=== PATIENT | male | born 1995 | race Hispanic/Latino ===

== ENCOUNTER 2017-10-31 18:01 | Emergency (ER) | payer OTHER ==
[2017-10-31] MEDS ORDERED: KETOROLAC TROMETHAMINE 60 MG/2 ML VIAL ONE (18:51)
== END 2017-10-31 20:18 | disposition home or self-care (01) ==
LOC: EDH 18:01
DX: M25.551 Pain in right hip (principal); M19.90 Unspecified osteoarthritis, unspecified site
CPT/HCPCS: 72100; 72170; 96372; 99284; J1885

== ENCOUNTER 2020-12-10 09:00 | Inpatient (IN) | payer OTHER ==
[~2020-12-10] VITALS: Ht 177.8 cm; Wt 83.2 kg
[2020-12-10 10:18] LABS: EOSINOPHILS % (AUTO) 3.4 % (0.0-8.0); LYMPHOCYTES % (AUTO) 28.2 % (21.0-51.0); MEAN CORPUSCULAR HEMOGLOBIN 29.4 pg (27.0-33.0); MEAN CORPUSCULAR HGB CONC 32.6 g/dL (32.0-36.0); MEAN CORPUSCULAR VOLUME 90.3 fL (79-99); MONOCYTES % (AUTO) 8.6 % (3.0-13.0); NEUTROPHILS % (AUTO) 58.4 % (40.0-77.0); PLATELET COUNT (AUTO) 539 K/uL (130-400); RED BLOOD CELL COUNT(AUTO) 4.76 MIL/uL (4.50-6.20); RED CELL DISTRIBUTION WIDTH 13.6 % (11.0-15.5); WHITE BLOOD COUNT (AUTO) 9.4 K/uL (4.8-10.8)
[2020-12-10 10:19] LABS: APPEARANCE,URINE Clear (CLEAR); BILIRUBIN,URINE Negative (NEGATIVE); COLOR,URINE Yellow (YELLOW); GLUCOSE, URINE (UA) Negative (NEGATIVE); KETONES,URINE Negative (NEGATIVE); LEUKOCYTE ESTERASE ,URINE Negative (NEGATIVE); NITRATE,URINE Negative (NEGATIVE); OCCULT BLOOD,URINE Negative (NEGATIVE); PH,URINE 5.5 (5.0-8.0); PROTEIN,URINE Negative (NEGATIVE); UROBILINOGEN,URINE 0.2 mg/dL (0.2-1.0)
[2020-12-10 10:28] LABS: CREATININE 0.8 mg/dL (0.5-1.5)
[2020-12-10 10:32] LABS: INR 1.05 (0.85-1.15); PROTHROMBIN TIME 11.4 SEC (9.6-11.6)
[2020-12-15 09:45] VITALS: BP 145/65
[2020-12-15] MEDS ORDERED: IBUP-2070 PO (09:57)
[2020-12-16] VITALS (22 sets, daily range): BP systolic 125–152; BP diastolic 70–98
[2020-12-16] MEDS ORDERED: CEFAZOLIN SODIUM 1 GM VIAL IVP ONE (08:00)
[2020-12-16] MEDS ORDERED: ACETAMINOPHEN 500 MG TABLET ONE (10:35)
[2020-12-16] MEDS ORDERED: METOCLOPRAMIDE 10 MG/2 ML VIAL ONE (10:35)
[2020-12-16] MEDS ORDERED: KETOROLAC 15MG/ML VIAL (15MG/ML) ONE (10:35)
[2020-12-16] MEDS ORDERED: CELECOXIB 200 MG CAP ONE (10:36)
[2020-12-16] MEDS ORDERED: LACTATED RINGERS 1000ML 1,000 ML IV ONE (10:36)
[2020-12-16] MEDS ORDERED: OXYCODONE HCL 10 MG TAB.SR.12H PO ONE (10:36)
[2020-12-16] MEDS ORDERED: TRANEXAMIC ACID 1000MG/10ML ONE (10:41)
[2020-12-16] MEDS ORDERED: CEFAZOLIN SODIUM 1 GM VIAL ONE ×2 (10:41→10:56)
[2020-12-16] MEDS ORDERED: LIDOCAINE PF 100MG/5ML (2%) SYRINGE 5ML ONE (10:51)
[2020-12-16] MEDS ORDERED: SUCCINYLCHOLINE CHLORIDE 20 MG/ML 10 ML VIAL ONE (10:51)
[2020-12-16] MEDS ORDERED: MIDAZOLAM HCL 1 MG/ML 2ML VIAL ONE (10:52)
[2020-12-16] MEDS ORDERED: PROPOFOL 10 MG/ML 20ML VIAL IV ONE ×2 (10:52→15:23)
[2020-12-16] MEDS ORDERED: ROCURONIUM 10MG/1ML SYR 10 MG/ML ML ONE ×3 (10:52→13:06)
[2020-12-16] MEDS ORDERED: FENTANYL CITRATE PF 50 MCG/1 ML 2ML VIAL ONE ×3 (10:52→15:16)
[2020-12-16] MEDS ORDERED: ROPIVACAINE 0.5% 5MG/ML 30ML IJ ONE (10:56)
[2020-12-16] MEDS ORDERED: DEXAMETHASONE SOD PHOSPHATE 10MG/ML 1ML VIAL ONE (11:48)
[2020-12-16] MEDS ORDERED: PHENYLEPHRINE HCL 10 MG/ML 1ML VIAL IV ONE (12:07)
[2020-12-16] MEDS ORDERED: GLYCOPYRROLATE 1 MG/5 ML SYRINGE ONE (12:08)
[2020-12-16] MEDS ORDERED: NEOSTIGMINE 5MG/5ML SYR IV ONE (12:08)
[2020-12-16] MEDS ORDERED: ONDANSETRON 4MG INJ ONE (12:08)
[2020-12-16] MEDS ORDERED: POTASSIUM CHLORIDE 10% ELIXIR 20 MEQ/15 ML UDCUP PO PRN (15:45)
[2020-12-16] MEDS ORDERED: KCL 20 MEQ ERTAB PO PRN (15:45)
[2020-12-16] MEDS ORDERED: OXYCODONE HCL 5 MG TAB PO PRN (15:45)
[2020-12-16] MEDS ORDERED: LIDOCAINE HCL-MPF 1% 2ML VIAL IV PRN (15:45)
[2020-12-16] MEDS ORDERED: FERROUS FUMARATE 324 MG TABLET PO PRN (15:45)
[2020-12-16] MEDS ORDERED: TEMAZEPAM 15 MG CAPSULE PO PRN (15:45)
[2020-12-16] MEDS: ACETAMINOPHEN 500 MG TABLET PO SCH (15:45)
[2020-12-16] MEDS ORDERED: CALCIUM CARB 500MG PO PRN (15:45)
[2020-12-16] MEDS ORDERED: DiphenhydrAMINE HCL 50 MG/ML VIAL IVP PRN (15:45)
[2020-12-16] MEDS ORDERED: TRAMADOL HCL 50 MG TABLET PO PRN (15:45)
[2020-12-16] MEDS ORDERED: POTASSIUM CHLORIDE 20MEQ/100ML 100 ML IV PRN (15:45)
[2020-12-16] MEDS ORDERED: ONDANSETRON 4MG INJ IVP PRN (15:45)
[2020-12-16] MEDS: OXYCODONE HCL 5 MG TAB PO PRN (17:26)
[2020-12-16] MEDS: 0.9%NACL 1000ML 1,000 ML IV SCH (17:27)
[2020-12-16] MEDS: KETOROLAC 15MG/ML VIAL (15MG/ML) IV PRN (18:49)
[2020-12-16] MEDS: CELECOXIB 200 MG CAP PO SCH (20:34)
[2020-12-16] MEDS: CEFAZOLIN SODIUM 1 GM VIAL IVP SCH (20:35)
[2020-12-16] MEDS: FAMOTIDINE 20MG TAB PO SCH (20:35)
[2020-12-16] MEDS: PREGABALIN 25 MG CAP PO SCH (20:35)
[2020-12-17] MEDS: ACETAMINOPHEN 500 MG TABLET PO SCH ×4 (00:40→23:45)
[2020-12-17] MEDS: 0.9%NACL 1000ML 1,000 ML IV SCH ×2 (01:45→11:45)
[2020-12-17 04:22] VITALS: BP 128/80
[2020-12-17] MEDS: CEFAZOLIN SODIUM 1 GM VIAL IVP SCH (04:26)
[2020-12-17] MEDS: OXYCODONE HCL 5 MG TAB PO PRN ×3 (04:40→20:16)
[2020-12-17] MEDS: KETOROLAC 15MG/ML VIAL (15MG/ML) IV PRN ×3 (04:51→17:24)
[2020-12-17 05:22] LABS: HEMATOCRIT 32.8 % (42-54); MEAN CORPUSCULAR HEMOGLOBIN 29.9 pg (27.0-33.0); MEAN CORPUSCULAR HGB CONC 33.2 g/dL (32.0-36.0); MEAN CORPUSCULAR VOLUME 89.9 fL (79-99); RED BLOOD CELL COUNT(AUTO) 3.65 MIL/uL (4.50-6.20); RED CELL DISTRIBUTION WIDTH 13.7 % (11.0-15.5); WHITE BLOOD COUNT (AUTO) 11.7 K/uL (4.8-10.8)
[2020-12-17 05:35] LABS: CREATININE 0.7 mg/dL (0.5-1.5)
[2020-12-17 07:51] VITALS: BP 109/68
[2020-12-17] MEDS: TAMSULOSIN HCL 0.4 MG CAP.ER.24H PO SCH (09:00)
[2020-12-17 11:14] VITALS: BP 111/68
[2020-12-17] MEDS: APIXABAN 2.5 MG TABLET PO SCH ×2 (12:32→20:16)
[2020-12-17] MEDS: FAMOTIDINE 20MG TAB PO SCH ×2 (12:32→20:15)
[2020-12-17] MEDS: POLYETHYLENE GLYCOL 3350 17 GM POWD.PACK PO SCH (12:33)
[2020-12-17] MEDS: CELECOXIB 200 MG CAP PO SCH ×2 (12:33→20:16)
[2020-12-17] MEDS: PREGABALIN 25 MG CAP PO SCH ×2 (12:33→20:16)
[2020-12-17 16:05] VITALS: BP 106/67
[2020-12-17 19:40] VITALS: BP 106/61
[2020-12-18 00:17] VITALS: BP 110/59
[2020-12-18] MEDS: OXYCODONE HCL 5 MG TAB PO PRN ×2 (03:36→10:45)
[2020-12-18 04:00] VITALS: BP 107/59
[2020-12-18 07:30] VITALS: BP 114/65
[2020-12-18] MEDS: TAMSULOSIN HCL 0.4 MG CAP.ER.24H PO SCH (09:00)
[2020-12-18] MEDS: FAMOTIDINE 20MG TAB PO SCH (10:36)
[2020-12-18] MEDS: ACETAMINOPHEN 500 MG TABLET PO SCH ×2 (10:37→16:17)
[2020-12-18] MEDS: APIXABAN 2.5 MG TABLET PO SCH (10:37)
[2020-12-18] MEDS: CELECOXIB 200 MG CAP PO SCH (10:37)
[2020-12-18] MEDS: POLYETHYLENE GLYCOL 3350 17 GM POWD.PACK PO SCH (10:38)
[2020-12-18] MEDS: PREGABALIN 25 MG CAP PO SCH (10:38)
[2020-12-18 12:23] VITALS: BP 111/73
[2020-12-18 16:00] VITALS: BP 109/59
[2020-12-18] MEDS ORDERED: APIX2.5T PO (17:01)
[2020-12-18] MEDS ORDERED: HYDR-4060 PO (17:01)
[2020-12-19] MEDS ORDERED: BISACODYL 10 MG SUPP.RECT RC PRN (15:45)
== END 2020-12-18 20:50 | disposition home health service (06) | DRG 470 ==
LOC: EDSTATUS 09:00 → DAHIP 12-16 08:54 → 3BH 12-16 17:17
PROVIDERS: ADMIT Orthopaedic Surgery; ATTEND Orthopaedic Surgery
PROC: 0SR90JZ Replacement of Right Hip Joint with Synthetic Substitute, Open Approach (ICD-10-PCS; principal; 2020-12-16 10:05)
DX: M16.11 Unilateral primary osteoarthritis, right hip (principal); Z20.822 Contact with and (suspected) exposure to COVID-19; D64.9 Anemia, unspecified
CPT/HCPCS: 36415; 73503; 80048; 81003; 85025; 85027; 85610; 97039; A4606; C1776; G0378; J0330; J0690; J1100; J1885; J2001; J2250; J2370; J2405; J2704; J2710; J2765; J2795; J3010; J3490; J7120; U0003